=== PATIENT | female | born 1965 | race Caucasian/White ===

== ENCOUNTER 2021-06-10 14:44 | Emergency (ER) | payer BC ==
[2021-06-10 15:05] VITALS: O2SAT 98
[2021-06-10] MEDS ORDERED: Sodium Chloride 0.9% 1000 ML 1,000 ML IV STA (15:25)
[2021-06-10] MEDS ORDERED: Sodium Chloride 0.9% 1000 ML 1,000 ML ONE (15:27)
[2021-06-10] MEDS ORDERED: Zofran 4 MG/2 ML VIAL ONE (15:32)
[2021-06-10] MEDS ORDERED: Hydromorphone 1 mg/ml Injection ONE (15:32)
[2021-06-10] MEDS ORDERED: Zofran 4 MG/2 ML VIAL IV ONE (15:34)
[2021-06-10] MEDS ORDERED: Hydromorphone 1 mg/ml Injection IV ONE (15:34)
--- NOTE | 2021-06-10 15:42 | ERPHSYRPT ---
- History of Present Illness Time Seen by Provider: 06/10/21 15:00 Source: patient Patient Subjective Stated Complaint: rt flank pain for the past 2 weeks, pt had a steroid shot in her left flank on the and started Macrobid on the due to a UTI Triage Nursing Assessment: Pt was brought to the ER by her , ron roman, rates pain 5/10, does not see a kidney specialist, only has one kidney, pain for 2 weeks in right flank, had painful urination last week but denies pain now after being on antibiotic, doesn't appear to be in any distress Physician History: This is a 55-year-old white female who is a patient of Dr. Murphy and presents with right flank pain. She has had intermittent right flank pain for the last 2 weeks. It seemed to be getting better but then yesterday in the evening the pain was getting worse. Patient has a history of only having a right kidney having had a left nephrectomy in the past. She has a history of gastroesophageal reflux disease and chronic urinary tract infections. She was diagnosed with a urinary tract infection on 06/05/2021 and was placed on Macrobid. Patient has no known chronic back issues. She did not suffer any acute trauma or fall injuring her back. She denies chest pain. She denies shortness of breath. She does not have abdominal pain. She has no nausea vomiting or diarrhea. She had been given a steroid injection in the left buttock on 06/05/2021 and it seemed to help her flank pain. Timing/Duration: week(s) (2) Method of Injury: other (No fall) Quality: aching (Right flank), pressure Severity of Pain-Max: moderate Severity of Pain-Current: moderate Modifying Factors: Improves With: movement Associated Symptoms: denies symptoms Previous symptoms: same symptoms as today, recently seen, recently treated Allergies/Adverse Reactions: Sulfa (Sulfonamide Antibiotics) Allergy (Mild, Verified 06/10/21 15:05) states does not take r/t kidney per urologist Home Medications: Nitrofurantoin Macro 100 mg [Macrobid 100MG Capsule] 100 mg PO BID 06/10/21 [History] Omeprazole 20 mg PO DAILY 06/10/21 [History] Hx Tetanus, Diphtheria Vaccination/Date Given: Yes Hx Influenza Vaccination/Date Given: Yes Hx Pneumococcal Vaccination/Date Given: No Travel Risk - International Travel Have you traveled outside of the country in past 3 weeks: No - Coronavirus Screening Are you exhibiting any of the following symptoms?: No Close contact with a COVID-19 positive Pt in past 14-21 Days: No - Vaccine Status Have you recieved a Covid-19 vaccination: No - Review of Systems Constitutional: No Symptoms Eyes: No Symptoms Ears, Nose, & Throat: No Symptoms Respiratory: No Symptoms Cardiac: No Symptoms Genitourinary Symptoms: Flank Pain (Right) Musculoskeletal: Back Pain (Right side), No Injury Skin: No Symptoms Neurological: No Symptoms Psychological: No Symptoms Endocrine: No Symptoms Hematologic/Lymphatic: No Symptoms Immunological/Allergic: No Symptoms All Other Systems: Reviewed and Negative - Past Medical History Pertinent Past Medical History: Yes Neurological History: No Pertinent History ENT History: No Pertinent History Cardiac History: No Pertinent History Respiratory History: No Pertinent History Endocrine Medical History: No Pertinent History Musculoskeletal History: No Pertinent History GI Medical History: Other History: Other Psycho-Social History: No Pertinent History Female Reproductive Disorders: No Pertinent History Other Medical History: frequent UTI,only has one kidney - Past Surgical History Past Surgical History: Yes Neuro Surgical History: No Pertinent History Cardiac: No Pertinent History Respiratory: No Pertinent History Gastrointestinal: No Pertinent History Genitourinary: Kidney Surgery Musculoskeletal: No Pertinent History Female Surgical History: Hysterectomy Other Surgical History: lt kidney removed {at age [age], defect} - Social History Smoking Status: Current every day smoker How long have you smoked: yrs Exposure to second hand smoke: Yes Drug Use: none Patient Lives Alone: No - Female History Hx Now: No - Nursing Vital Signs Nursing Vital Signs: Initial Vital Signs Temperature 97.2 F 06/10/21 14:50 Pulse Rate 78 06/10/21 14:50 Blood Pressure 132/98 06/10/21 14:50 O2 Sat by Pulse Oximetry 98 06/10/21 14:50 Pain Scale Pain Intensity [Right Back] 5 Pain Intensity 5 - Physical Exam General Appearance: no apparent distress, alert, anxiety Eye Exam: PERRL/EOMI, eyes nml inspection Ears, Nose, Throat Exam: normal ENT inspection, moist mucous membranes Neck Exam: normal inspection, non-tender, supple, full range of motion Respiratory Exam: normal breath sounds, lungs clear, airway intact, No chest tenderness, No respiratory distress Cardiovascular Exam: regular rate/rhythm, normal heart sounds, normal peripheral pulses Gastrointestinal Exam: soft, normal bowel sounds, No tenderness Pelvic Exam: not done Rectal Exam: not done Back Exam: normal inspection, normal range of motion, CVA tenderness (Right side), No vertebral tenderness Extremity Exam: normal inspection, normal range of motion, pelvis stable Neurologic Exam: alert, oriented x 3, cooperative, extermination supervisor II-XII nml as tested, normal mood/affect, nml cerebellar function, nml station & gait, sensation nml Skin Exam: normal color, warm, dry Lymphatic Exam: No adenopathy SpO2 Interpretation: normal SpO2: 98 O2 Delivery: Room Air - Course Nursing assessment & vital signs reviewed: Yes Ordered Tests: Active Orders 24 hr Category Date Time Status IV Insertion STAT Care 06/10/21 15:25 Active ABDOMEN AND PELVIS W/0 CONTRAS [CT] Stat Exams 06/10/21 15:25 Taken AMYLASE Stat Lab 06/10/21 15:12 Completed CBC W DIFF Stat Lab 06/10/21 15:12 Completed CMP Stat Lab 06/10/21 15:12 Completed LIPASE Stat Lab 06/10/21 15:12 Completed UA W/RFX UR CULTURE Stat Lab 06/10/21 15:27 Completed Medication Summary Discontinued Medications Generic Name Dose Route Start Last Admin Trade Name Freq PRN Reason Stop Dose Admin Hydromorphone HCl 0.5 mg 06/10/21 15:34 06/10/21 15:35 Hydromorphone 1 Mg/1ml Inj 1 Mg/Ml Syringe IV 06/10/21 15:35 0.5 mg STAT ONE Administration Hydromorphone HCl Confirm 06/10/21 15:32 Hydromorphone 1 Mg/1ml Inj 1 Mg/Ml Syringe Administered 06/10/21 15:33 Dose 1 mg .ROUTE .STK-MED ONE Sodium Chloride 1,000 mls @ 999 mls/hr 06/10/21 15:25 06/10/21 15:29 Sodium Chloride 0.9% 1000 Ml IV 06/10/21 16:25 999 mls/hr .Q1H1M STA Administration Sodium Chloride Confirm 06/10/21 15:27 Sodium Chloride 0.9% 1000 Ml Administered 06/10/21 15:28 Dose 1,000 mls @ ud .ROUTE .STK-MED ONE Ondansetron HCl 4 mg 06/10/21 15:34 06/10/21 15:35 Ondansetron Hcl 4 Mg/2 Ml Vial IV 06/10/21 15:35 4 mg STAT ONE Administration Ondansetron HCl Confirm 06/10/21 15:32 Ondansetron Hcl 4 Mg/2 Ml Vial Administered 06/10/21 15:33 Dose 4 mg .ROUTE .K-[facility] ONE Lab/Rad Data: Laboratory Result Diagrams 06/10/21 15:12 06/10/21 15:12 Laboratory Results 06/10/21 06/10/21 06/10/21 Range/Units 15:27 15:12 15:12 WBC 12.5 H (4.0-10.5) K/mm3 RBC 3.92 L (4.1-5.4) M/mm3 Hgb 11.9 L (12.0-16.0) gm/dl Hct 36.8 (35-47) % MCV 93.9 (78-100) fl MCH 30.4 (26-32) pg MCHC 32.3 (32-36) g/dl RDW 13.2 (11.5-14.0) % Plt Count 467 H (150-450) K/mm3 MPV 9.9 (7.5-11.0) fl Gran % 57.8 (36.0-66.0) % Eos # (Auto) 0.15 (0-0.5) Absolute Lymphs (auto) 4.25 (1.0-4.6) Absolute Monos (auto) 0.84 (0.0-1.3) Lymphocytes % 33.9 (24.0-44.0) % Monocytes % 6.7 (0.0-12.0) % Eosinophils % 1.2 (0.00-5.0) % Basophils % 0.4 (0.0-0.4) % Absolute Granulocytes 7.25 H (1.4-6.9) Basophils # 0.05 (0-0.4) Sodium 139 (137-145) mmol/L Potassium 4.3 (3.5-5.1) mmol/L Chloride 107 (98-107) mmol/L Carbon Dioxide 23 (22-30) mmol/L Anion Gap 12.6 (5-15) MEQ/L BUN 13 (7-17) mg/dL Creatinine 0.71 (0.52-1.04) mg/dL Estimated GFR > 60.0 ML/MIN Glucose 88 (74-106) mg/dL Calcium 9.8 (8.4-10.2) mg/dL Total Bilirubin 0.40 (0.2-1.3) mg/dL AST 37 H (14-36) U/L ALT 18 (0-35) U/L Alkaline Phosphatase 81 (38-126) U/L Serum Total Protein 7.0 (6.3-8.2) g/dL Albumin 4.4 (3.5-5.0) g/dL Amylase 58 (30-110) U/L Lipase 207 (23-300) U/L Urine Color YELLOW (YELLOW) Urine Appearance CLEAR (CLEAR) Urine pH 6.0 (5-6) Ur Specific [place] 1.009 (1.005-1.025) Urine Protein NEGATIVE (Negative) Urine Ketones NEGATIVE (NEGATIVE) Urine Blood NEGATIVE (0-5) Yoan/ul Urine Nitrite NEGATIVE (NEGATIVE) Urine Bilirubin NEGATIVE (NEGATIVE) Urine Urobilinogen NEGATIVE (0-1) mg/dL Ur Leukocyte Esterase NEGATIVE (NEGATIVE) Urine WBC (Auto) NONE (0-5) /HPF Urine RBC (Auto) NONE (0-2) /HPF U Epithel Cells (Auto) NONE (FEW) /HPF Urine Bacteria (Auto) NONE (NEGATIVE) /HPF Urine Culture Reflexed NO (NO) Urine Glucose NEGATIVE (NEGATIVE) mg/dL - Progress Progress: improved, pain not gone completely Progress Note: 06/10/21 16:35 CAT scan of the abdomen pelvis without contrast shows mild right hydronephrosis and right hydroureter but no obstructing calculus. Cannot exclude a recently passed calculus that is no longer present. Counseled pt/family regarding: lab results, diagnosis, need for follow-up, rad results - Departure Departure Disposition: Home Clinical Impression: Right flank pain Condition: Stable Critical Care Time: No Referrals: DOCTOR,NO FAMILY [Primary Care Provider] - Follow up/PCP as directed Additional Instructions: Drink plenty fluids. Continue your antibiotics as prescribed. Follow-up with your primary care physician for further management Prescriptions: Prednisone 10 mg [Deltasone 10 mg] 10 mg PO TID #12 tablet
[2021-06-10 15:43] LABS: Absolute Neutrophil Ct (ANC) 7.25 (1.4-6.9); BASOPHIL % 0.4 % (0.0-0.4); Basophil (Absolute #) 0.05 (0-0.4); Eosinophil % 1.2 % (0.00-5.0); Eosinophil (Absolute #) 0.15 (0-0.5); Hematocrit 36.8 % (35-47); Hemoglobin 11.9 gm/dl (12.0-16.0); Lymphocyte (Absolute #) 4.25 (1.0-4.6); Lymphocytes % 33.9 % (24.0-44.0); Mean Cell Volume 93.9 fl (78-100); Mean Corpuscular Hemoglobin 30.4 pg (26-32); Mean Corpuscular Hgb Concent. 32.3 g/dl (32-36); Mean Platelet Volume 9.9 fl (7.5-11.0); Monocyte (Absolute #) 0.84 (0.0-1.3); Monocytes % 6.7 % (0.0-12.0); Neutrophil % 57.8 % (36.0-66.0); Platelet Count 467 K/mm3 (150-450); Red Blood Count 3.92 M/mm3 (4.1-5.4); Red Cell Distribution Width 13.2 % (11.5-14.0); White Blood Count 12.5 K/mm3 (4.0-10.5)
[2021-06-10 15:48] LABS: Appearance CLEAR (CLEAR); Bilirubin NEGATIVE (NEGATIVE); Blood NEGATIVE Ery/ul (0-5); Glucose NEGATIVE (NEGATIVE); Ketones NEGATIVE (NEGATIVE); Leukocyte Esterase NEGATIVE (NEGATIVE); Nitrite NEGATIVE (NEGATIVE); Protein,Urine Dip NEGATIVE (Negative); Specific Gravity 1.009 (1.005-1.025); Urobilinogen NEGATIVE mg/dL (0-1)
[2021-06-10 15:52] LABS: ALBUMIN 4.4 g/dL (3.5-5.0); ALKALINE PHOSPHATASE 81 U/L (38-126); AMYLASE 58 U/L (30-110); ANION GAP 12.6 MEQ/L (5-15); BLOOD UREA NITROGEN 13 mg/dL (7-17); CHLORIDE 107 mmol/L (98-107); Calcium 9.8 mg/dL (8.4-10.2); Carbon Dioxide 23 mmol/L (22-30); Creatinine 1 0.71 mg/dL (0.52-1.04); EST GLOMERULAR FILTRATION RATE > 60.0 ML/MIN; Glucose 88 mg/dL (74-106); LIPASE 207 U/L (23-300); Potassium 4.3 mmol/L (3.5-5.1); SGOT/AST 37 U/L (14-36); SGPT/ALT 18 U/L (0-35); SODIUM 139 mmol/L (137-145)
[2021-06-10 16:45] VITALS: BP 144/85; PULSE 67
--- NOTE | 2021-06-11 09:02 | XRAY ---
Exam: CT of the abdomen and pelvis without IV contrast from 06/10/2021. CTDI: 8.23 mGy Comparison: CT of the abdomen and pelvis with IV contrast from 06/16/2014. Indication: 55-year-old female with abdominal pain/right flank pain for 2 weeks. Patient has history of prior left nephrectomy and hysterectomy. Technique: Non-IV contrast axial images were obtained through the abdomen and pelvis. No oral contrast was given. Reconstructed coronal and sagittal images were created and reviewed. Findings: The visualized lung bases appear clear. The heart size is normal. The liver and spleen appear of normal size and uniform attenuation. No focal mass is seen within the liver or spleen. No intrahepatic biliary duct distention is seen. The gallbladder is distended and reveals no dense calcifications within it. Both the pancreas and adrenal glands appear unremarkable. The left kidney is surgically absent. The right kidney measures 13.0 cm in length and reveals no gross evidence of mass or calculi. However, I see mild right-sided pelviectasis representing no change. Portions of the right ureter are prominent measuring up to 1.2 cm in diameter. However, this is essentially unchanged from 06/16/2014. Correlate clinically regarding the possibility of a recently passed stone. The urinary bladder is distended and appears unremarkable. No urinary bladder wall thickening or intraluminal calcifications are seen within the urinary bladder. Mild atherosclerotic vascular calcification is seen within the abdominal aorta. There is no evidence of abdominal aortic aneurysm or abnormal retroperitoneal lymphadenopathy. There is no free intraperitoneal air or bowel containing ventral hernia. No abnormal bowel distention or bowel obstruction is seen. No definite bowel wall thickening is seen. I note some scattered diverticula throughout the colon, the greatest number within the sigmoid colon. No evidence of diverticulitis is seen. The appendix is identified within a retrocecal location and appears unremarkable. The uterus again appears surgically absent. No other abnormal pelvic mass or lymphadenopathy is seen. No free intraperitoneal fluid is evident. The pelvic sidewalls appear unremarkable. Some calcified phleboliths are seen within the lower pelvis on each side of midline. Each femoral region appears unremarkable. The skeleton reveals mild narrowing of the L4-L5 interspace height with small vertebral endplate spurs indicating early/mild degenerative disc disease. In addition, there is moderate narrowing of the L5-S1 interspace height with new vacuum disc phenomena as well as some mild vertebral endplate spurring indicating moderate degenerative disc disease. There is a small Schmorl's node within the posterior aspect of the inferior vertebral endplate of T11 representing no change. Mild left L5-S1 facet joint arthropathy is seen. Impression: 1. I again note mild right sided pelvocaliectasis as well as right-sided hydroureter down to the level of the ureterovesical junction representing no significant change from 06/16/2014. An obstructing calcified ureteral stone is not seen. Correlate clinically regarding the possibility of a recently passed right ureteral stone. 2. Colonic diverticulosis without evidence of acute diverticulitis. 3. Normal appendix. 4. Status post left nephrectomy and hysterectomy.
== END 2021-06-10 17:00 | disposition home or self-care (01) ==
LOC: ED 14:44
DX: R10.84 Generalized abdominal pain (principal); Z90.5 Acquired absence of kidney; Z72.0 Tobacco use
CPT/HCPCS: 36415; 74176; 80053; 81001; 82150; 83690; 85025; 96374; 96375; 99284; J1170; J2405

== ENCOUNTER 2023-04-27 18:55 | Emergency (ER) | payer BC, MEDICAID ==
[2023-04-27 19:13] VITALS: O2SAT 99
[2023-04-27] MEDS ORDERED: TORAdol 30 mg Injection IV ONE (19:23)
--- NOTE | 2023-04-27 19:24 | ERPHSYRPT ---
- History of Present Illness Time Seen by Provider: 04/27/23 19:10 Source: patient Exam Limitations: no limitations Patient Subjective Stated Complaint: SHINGLES RASH Triage Nursing Assessment: Patient reports to ER with c/o pain and rash to right side groin spreading to right side and back. Patient states this rash began almost 2 months ago and that it started out as blisters but is now all dried up and scabbed. Patient reports a history of shingles in the past and states this pain resembles shingles pain. Patient rating pain 6/10 at this time and requesting "no controlled drugs". Dried scabbed areas noted from right groin around to back- no drainage noted. Patient denies itching. Patient also reporting poor appetite and intermittent headache. Pt a&o x3, easy respirations on room air. Physician History: Patient is a 57-year-old female presents to our emergency department for treatment of postherpetic neuralgia.Patient had a shingles flareup approximately 2 months ago. The area of involvement isL1 dermatome.The lesions are currently dried and scabbed. However patient is experiencing post herpetic neuralgia. She rates her pain 6 out of 10.Symptoms are moderate in intensity. No specific worsening improving factors. Patient does not have a primary care doctor to follow-up with. Patient states her primary care doctor is no longer active in the area therefore patient has no one to follow-up with for patient.Patient is otherwise healthy. She voices no other complaints or concerns at this time Portions of this note were created with voice recognition technology. There may be grammatical, spelling, punctuation or sound alike errors Timing/Duration: other (2 months) Severity: moderate Modifying Factors: Improves With: nothing Associated Symptoms: denies symptoms Allergies/Adverse Reactions: Sulfa (Sulfonamide Antibiotics) Allergy (Mild, Verified 04/27/23 19:02) states does not take r/t kidney per urologist Home Medications: Cephalexin Mh 250 mg [Keflex 250 mg] 250 mg PO HS 04/27/23 [History] Hx Tetanus, Diphtheria Vaccination/Date Given: Yes Hx Influenza Vaccination/Date Given: Yes Hx Pneumococcal Vaccination/Date Given: No Travel Risk - International Travel Have you traveled outside of the country in past 3 weeks: No - Coronavirus Screening Are you exhibiting any of the following symptoms?: No Close contact with a COVID-19 positive Pt in past 14-21 Days: No - Vaccine Status Have you recieved a Covid-19 vaccination: No - Review of Systems Constitutional: No Symptoms, No Fever, No Chills Eyes: No Symptoms Ears, Nose, & Throat: No Symptoms Respiratory: No Symptoms, No Cough, No Dyspnea Cardiac: No Symptoms, No Chest Pain, No Edema, No Syncope Abdominal/Gastrointestinal: No Symptoms, No Abdominal Pain, No Nausea, No Vomiting, No Diarrhea Genitourinary Symptoms: No Symptoms, No Dysuria Musculoskeletal: No Symptoms, No Back Pain, No Neck Pain Skin: No Symptoms, No Rash Neurological: No Symptoms, No Dizziness, No Focal Weakness, No Sensory Changes Psychological: No Symptoms Endocrine: No Symptoms Hematologic/Lymphatic: No Symptoms Immunological/Allergic: No Symptoms All Other Systems: Reviewed and Negative - Past Medical History Pertinent Past Medical History: Yes Neurological History: No Pertinent History ENT History: No Pertinent History Cardiac History: No Pertinent History Respiratory History: No Pertinent History Endocrine Medical History: No Pertinent History Musculoskeletal History: No Pertinent History GI Medical History: Diverticulosis, Other History: Other Psycho-Social History: No Pertinent History Female Reproductive Disorders: No Pertinent History Other Medical History: frequent UTI,only has one kidney - Past Surgical History Past Surgical History: Yes Neuro Surgical History: No Pertinent History Cardiac: No Pertinent History Respiratory: No Pertinent History Gastrointestinal: No Pertinent History Genitourinary: Kidney Surgery Musculoskeletal: No Pertinent History Female Surgical History: Hysterectomy Other Surgical History: lt kidney removed {at age [age], defect} - Social History Smoking Status: Former smoker How long have you smoked: yrs Exposure to second hand smoke: Yes Drug Use: none Patient Lives Alone: Yes - Nursing Vital Signs Nursing Vital Signs: Initial Vital Signs Pulse Rate 98 H 04/27/23 19:04 Respiratory Rate 17 04/27/23 19:04 Blood Pressure 144/99 04/27/23 19:04 O2 Sat by Pulse Oximetry 99 04/27/23 19:04 Pain Scale Pain Intensity 3 - Physical Exam General Appearance: no apparent distress, alert Eye Exam: PERRL/EOMI, eyes nml inspection Neck Exam: normal inspection, full range of motion Respiratory Exam: airway intact, No respiratory distress Cardiovascular Exam: regular rate/rhythm, normal heart sounds, normal peripheral pulses Gastrointestinal/Abdomen Exam: soft, No tenderness, No mass, No guarding Back Exam: normal inspection, normal range of motion, No CVA tenderness, No vertebral tenderness Extremity Exam: normal inspection, normal range of motion, pelvis stable Neurologic Exam: alert, oriented x 3, cooperative, normal mood/affect, nml cerebellar function, nml station & gait, sensation nml, No motor deficits Skin Exam: normal color, warm, dry, other (There is residual dried scabbed lesions along L1 dermatome. On the right side.No superimposed infection. No open or draining lesions.), No rash Lymphatic Exam: No adenopathy SpO2 Interpretation: normal SpO2: 99 O2 Delivery: Room Air - Course Nursing assessment & vital signs reviewed: Yes Ordered Tests: Medication Summary Discontinued Medications Generic Name Dose Route Start Last Admin Trade Name Fremaryjane PRN Reason Stop Dose Admin Ketorolac Tromethamine 30 mg 04/27/23 19:23 04/27/23 19:49 Ketorolac Tromethamine 30 Mg/Ml Inj IV 04/27/23 19:24 30 mg STAT ONE Administration Ketorolac Tromethamine Confirm 04/27/23 19:48 Ketorolac Tromethamine 30 Mg/Ml Inj Administered 04/27/23 19:49 Dose 30 mg .ROUTE .[employer]-MED ONE - Progress Progress: improved Progress Note: 57-year-old female presents emergency department for evaluation ofPostherpetic neuralgia. Patient symptoms started approximately 2 months ago. Her lesions are now healed dried however there is residual pain.Patient states she did not want a narcotic. Patient given a dose of Toradol. Patient reassessed. Patient that she feels much better and is requesting discharge. A prescription for Toradol forwarded to patient's pharmacy. Patient agrees to follow-up with her primary care doctor within 48 hours for reevaluation Portions of this note were created with voice recognition technology. There may be grammatical, spelling, punctuation or sound alike errors Complexity of problem addressed is moderate acute complicated No critical care time Complexity of data reviewed and analyzed is none. No specialized testing ordered. Diagnosis made based on history and physical examination. Risk of complication and or risk of morbidity/mortality patient management is moderate. A prescription for Toradol forwarded to patient's pharmacy. Vital stable. Time spent to discharge patient is approximately 15 minutes. Plan of care established for shared decision making. No social determinants of health present to impede follow-up Portions of this note were created with voice recognition technology. There may be grammatical, spelling, punctuation or sound alike errors 04/27/23 20:58 Counseled pt/family regarding: diagnosis, need for follow-up - Departure Departure Disposition: Home Clinical Impression: Post herpetic neuralgia Condition: Stable Critical Care Time: No Referrals: STEPH MARIA, [NON-STAFF PHY W/O PRIVILEGES] - Follow up/PCP as directed Additional Instructions: Discharge/Care Plan SOPHIE ELI was seen on 04/27/23 in the Emergency Room. The patient was counseled regarding Diagnosis,Lab results, Imaging studies, need for follow up and when to return to the Emergency Room. Prescriptions given: Discharge Note I have spoken with the patient and/or caregivers. I have explained the patient's condition, diagnosis and treatment plan based on the information available to me at this time. I have answered the patient's and/or caregiver's questions and addressed any concerns. The patient and/or caregivers have as good understanding of the patient's diagnosis, condition and treatment plan as can be expected at this point. The vital signs have been stable. The patient's condition is stable and appropriate for discharge from the emergency department. The patient will pursue further outpatient evaluation with the primary care y sician or other designated or consulting physician as outlined in the discharge instructions. The patient and/or caregivers are agreeable to this plan of care and follow-up instructions have been explained in detail. The patient and/or caregivers have received these instruction. The patient/and or caregivers are aware that any significant change in condition or worsening of symptoms should prompt an immediate return to this or the closest emergency department or call 911. Prescriptions: Ketorolac Trometh 10 mg Tab [TORAdol 10 MG TABLET] 10 mg PO TID 5 Days #15 tablet
[2023-04-27] MEDS ORDERED: TORAdol 30 mg Injection ONE (19:48)
[2023-04-27 20:44] VITALS: BP 117/90; PULSE 60; RESP 18
== END 2023-04-27 21:04 | disposition home or self-care (01) ==
LOC: ED 18:55
DX: B02.29 Other postherpetic nervous system involvement (principal); Z79.899 Other long term (current) drug therapy; Z28.310 Unvaccinated for COVID-19
CPT/HCPCS: 96372; 99282; J1885

== ENCOUNTER 2024-05-03 08:35 | Emergency (ER) | payer MEDICAID ==
[2024-05-03 08:54] VITALS: PULSE 84; RESP 16; TEMP 97.6
--- NOTE | 2024-05-03 09:06 | ERPHSYRPT ---
- History of Present Illness Time Seen by Provider: 05/03/24 08:50 Source: patient Exam Limitations: clinical condition Patient Subjective Stated Complaint: left arm pain Triage Nursing Assessment: patient was walking down stairs, slipped and fell on her right arm this past friday. pain has been increasingly worse. left arm looks to have some swelling. firm to touch Occurred: days ago Method of Injury: fell Quality: constant Severity of Pain-Max: mild Severity of Pain-Current: mild Allergies/Adverse Reactions: Sulfa (Sulfonamide Antibiotics) Allergy (Mild, Verified 05/03/24 08:54) states does not take r/t kidney per urologist Home Medications: Cephalexin Mh 250 mg [Keflex 250 mg] 250 mg PO HS 04/27/23 [History] Duloxetine HCl 30 mg [Cymbalta 30 MG Capsule] 40 mg PO DAILY 05/03/24 [History] Hx Tetanus, Diphtheria Vaccination/Date Given: Yes Hx Influenza Vaccination/Date Given: No Hx Pneumococcal Vaccination/Date Given: No Travel Risk - International Travel Have you traveled outside of the country in past 3 weeks: No - Emerging Infectious Disease Are you exhibiting symptoms associated with any current EIDs: No - Review of Systems Eyes: No Symptoms Ears, Nose, & Throat: No Symptoms Respiratory: No Symptoms Cardiac: No Symptoms Abdominal/Gastrointestinal: No Symptoms Genitourinary Symptoms: No Symptoms Musculoskeletal: No Symptoms Skin: No Symptoms Neurological: No Symptoms Psychological: No Symptoms Endocrine: No Symptoms Hematologic/Lymphatic: No Symptoms Immunological/Allergic: No Symptoms - Past Medical History Pertinent Past Medical History: Yes Neurological History: No Pertinent History ENT History: No Pertinent History Cardiac History: No Pertinent History Respiratory History: No Pertinent History Endocrine Medical History: No Pertinent History Musculoskeletal History: No Pertinent History GI Medical History: Diverticulosis, Other History: Other Psycho-Social History: No Pertinent History Female Reproductive Disorders: No Pertinent History Other Medical History: frequent UTI,only has one kidney - Past Surgical History Past Surgical History: Yes Neuro Surgical History: No Pertinent History Cardiac: No Pertinent History Respiratory: No Pertinent History Gastrointestinal: No Pertinent History Genitourinary: Kidney Surgery Musculoskeletal: No Pertinent History Female Surgical History: Hysterectomy Other Surgical History: lt kidney removed {at age [age], defect} - Social History Smoking Status: Current every day smoker How long have you smoked: yrs Exposure to second hand smoke: Yes Drug Use: none Patient Lives Alone: Yes - Social Determinants of Health In the past 12 months,have you had to go without utilities?: No Transportation Issues: No Has anyone in your support network made you feel unsafe?: No Have you or anyone in your house had to go without enough: No - Nursing Vital Signs Nursing Vital Signs: Initial Vital Signs Temperature 97.6 F 05/03/24 08:45 Pulse Rate 84 05/03/24 08:45 Respiratory Rate 16 05/03/24 08:45 O2 Sat by Pulse Oximetry 99 05/03/24 08:45 Pain Scale Pain Intensity 5 - Physical Exam General Appearance: no apparent distress Eyes, Ears, Nose, Throat Exam: normal ENT inspection Neck Exam: normal inspection Cardiovascular/Respiratory Exam: chest non-tender Abdominal Exam: non-tender Shoulder Exam: bone tenderness (patient has limited ROM due to pain ), limited ROM, soft tissue tenderness SpO2: 99 Ordered Tests: Active Orders 24 hr Category Date Time Status CHEST WITHOUT CONTRAST [CT] Stat Exams 05/03/24 10:17 Completed SHOULDER Stat Exams 05/03/24 09:03 Completed Medication Summary Discontinued Medications Generic Name Dose Route Start Last Admin Trade Name Vane PRN Reason Stop Dose Admin Oxycodone/Acetaminophen 1 tab 05/03/24 09:04 05/03/24 09:19 Oxycodone Hcl/Apap 5 Mg/325 Mg Tablet PO 05/03/24 09:05 1 tab STAT STA Administration Oxycodone/Acetaminophen Confirm 05/03/24 09:18 Oxycodone Hcl/Apap 5 Mg/325 Mg Tablet Administered 05/03/24 09:19 Dose 1 tab .ROUTE .ST-MED ONE - Progress Progress Note: X-ray of the no acute left shoulder reveals no acute findings patient was updated with the results- ct scan of the chest was obtained and this revealed no acute findings she was updated and informed of the need for follow up - she will be discharged home with a sling and informed of the need to use tylenol motrin and an icepak 05/03/24 10:13 05/03/24 13:47 Medical Desision Making - Discussion of managment Reviewed:: Need for additional workup Agreed on:: Treatment plan, need for follow-up - Diagnostic Testing Diagnostic test were ordered, analyzed, and reviewed by me: Yes Radiological Interpretation: Reviewed by me - Departure Clinical Impression: Contusion of left shoulder, Sprain of left shoulder Condition: Stable Critical Care Time: No Referrals: DOCTOR,NO FAMILY [Primary Care Provider] - Follow up/PCP as directed
[2024-05-03] MEDS ORDERED: PERCOCET TABLET 5/325MG ONE (09:18)
[2024-05-03] MEDS: PERCOCET TABLET 5/325MG PO STA (09:19)
[2024-05-03 10:05] VITALS: BP 113/92
--- NOTE | 2024-05-03 10:10 | XRAY ---
Indication: Pain following fall. Comparison: None 3 view left shoulder demonstrates osteopenia and mild AC degenerative arthropathy. No other bony, articular, or soft tissue abnormalities.
[2024-05-03 10:17] VITALS: O2SAT 99
--- NOTE | 2024-05-03 12:56 | XRAY ---
Indication: Left posterior trauma following fall 4 days ago. Multiple contiguous axial images obtained through the chest without contrast. Comparison: None Lungs demonstrate minimal dependent atelectasis. No suspicious pulmonary mass/nodule, infiltrate, effusion, or pneumothorax. Heart not enlarged. Aorta is normal in course and caliber. No pathologic mediastinal lymphadenopathy. Bony thorax intact with minimal degenerative changes throughout upper thoracic spine and minimally elongated dextroscoliosis centered at T7. Limited upper abdomen demonstrates left total nephrectomy. Impression: Chronic findings including left total nephrectomy and chronic bony findings. Remaining CT chest without contrast exam is normal.
== END 2024-05-03 14:12 | disposition home or self-care (01) ==
LOC: ED 08:35
DX: S40.012A Contusion of left shoulder, initial encounter (principal); S43.402A Unspecified sprain of left shoulder joint, initial encounter; W10.9XXA Fall (on) (from) unspecified stairs and steps, initial encounter; Z79.899 Other long term (current) drug therapy; Z72.0 Tobacco use
CPT/HCPCS: 71250; 73030; 99283; A9270-GY

== ENCOUNTER 2024-05-13 16:29 | Emergency (ER) | payer OTHER ==
[2024-05-13 17:10] VITALS: TEMP 98; O2SAT 97
[2024-05-13] MEDS ORDERED: NORCO 10-325 MG ONE (17:20)
[2024-05-13] MEDS: NORCO 10-325 MG PO STA (17:21)
--- NOTE | 2024-05-13 18:02 | ERPHSYRPT ---
- History of Present Illness Time Seen by Provider: 05/13/24 17:01 Source: patient Exam Limitations: no limitations Patient Subjective Stated Complaint: C/O left shoulder pain. Patient indicates she fell almost 2 weeks ago. MRI today shows tendon tears. She is scheduled to see Ortho, Dr. Hdez on 05/17/24. Patient states she is in increased pain since the MRI today due to the way she had to be positioned for the test. Patient looking for pain relief/management until seen by Dr. Hdez on Friday. Triage Nursing Assessment: Patient ambulated back to ER [facility]. She is alert and oriented. S/S os pain present; grimacing. Physician History: Patient here with left shoulder injury. States that she fell 2 weeks ago. Patient finally got an MRI today. This demonstrated a full-thickness tear supraspinatus tendon with tendon retraction. Also a partial tear of the subscapularis tendon. Patient is in a lot of pain. She arrives today to see if there is anything else we can do for her. She has no new falls or trauma. She has only been taking Tylenol. Patient only has 1 kidney therefore she has not been able to take any ibuprofen. No other falls or trauma outside of this. No actual chest pain, shortness of breath, signs or symptoms of ACS. Allergies/Adverse Reactions: Sulfa (Sulfonamide Antibiotics) Allergy (Mild, Verified 05/13/24 16:53) states does not take r/t kidney per urologist Home Medications: Cephalexin Mh 250 mg [Keflex 250 mg] 250 mg PO HS 04/27/23 [History] Duloxetine HCl 30 mg [Cymbalta 30 MG Capsule] 40 mg PO DAILY 05/03/24 [History] Omeprazole 20 mg PO DAILY 05/13/24 [History] Hx Tetanus, Diphtheria Vaccination/Date Given: Yes Hx Influenza Vaccination/Date Given: No Hx Pneumococcal Vaccination/Date Given: No Immunizations Up to Date: Yes Travel Risk - International Travel Have you traveled outside of the country in past 3 weeks: No - Emerging Infectious Disease Are you exhibiting symptoms associated with any current EIDs: No - Past Medical History Pertinent Past Medical History: Yes Neurological History: No Pertinent History ENT History: No Pertinent History Cardiac History: No Pertinent History Respiratory History: No Pertinent History Endocrine Medical History: No Pertinent History Musculoskeletal History: No Pertinent History GI Medical History: Diverticulosis, Other History: Other Psycho-Social History: No Pertinent History Female Reproductive Disorders: No Pertinent History Other Medical History: frequent UTI, only has one kidney, shingles, neuropathy pain from shingles - Past Surgical History Past Surgical History: Yes Neuro Surgical History: No Pertinent History Cardiac: No Pertinent History Respiratory: No Pertinent History Gastrointestinal: No Pertinent History Genitourinary: Kidney Surgery Musculoskeletal: No Pertinent History Female Surgical History: Hysterectomy Other Surgical History: lt kidney removed {at age [age], defect} - Social History Smoking Status: Current every day smoker How long have you smoked: 25 years Exposure to second hand smoke: Yes Drug Use: none Patient Lives Alone: Yes - Social Determinants of Health Will the patient participate in the screening: Yes Do you worry about a steady place to live?: No Do you have any problems with any of the following?: No known problems In the past 12 months,have you had to go without utilities?: No Transportation Issues: No Has anyone in your support network made you feel unsafe?: No Have you or anyone in your house had to go without enough: No - Nursing Vital Signs Nursing Vital Signs: Initial Vital Signs Temperature 98 F 05/13/24 16:55 Pulse Rate 84 05/13/24 16:55 Respiratory Rate 20 05/13/24 16:55 Blood Pressure 133/100 05/13/24 16:55 O2 Sat by Pulse Oximetry 97 05/13/24 16:55 Pain Scale Pain Intensity 3 - Physical Exam SpO2: 97 Comments: 05/13/24 18:04 Review of Systems Constitutional: Negative for fever. HENT: Negative for congestion. Respiratory: Negative for shortness of breath. Cardiovascular: Negative for chest pain. Gastrointestinal: Negative for abdominal pain. Genitourinary: Negative for dysuria. Musculoskeletal: Negative for back pain. Skin: Negative for rash. Neurological: Negative for headaches. Psychiatric/Behavioral: Negative for behavioral problems. All other systems reviewed and are negative. Physical Exam Vitals signs and nursing note reviewed. Constitutional: Appearance: Patient is well-developed. HENT: Head: Normocephalic and atraumatic. Eyes: Conjunctiva/sclera: Conjunctivae normal. Neck: Musculoskeletal: Normal range of motion. Trachea: No tracheal deviation. Cardiovascular: Rate and Rhythm: Normal rate. Pulmonary: Effort: Pulmonary effort is normal. No respiratory distress. Abdominal: Palpations: Abdomen is soft. Musculoskeletal: General: Posterior shoulder pain over supraspinatus tendon. No obvious deformity, sensation intact, 2+ capillary refill, 2 point tactile discrimination intact. Limited range of motion and strength secondary to injury. Compartments are soft, nontender. Overlying skin shows no tenting, bruising, ecchymosis. Skin: General: Skin is warm and dry. Neurological/ Psychiatric: Mental Status: Mental status, behavior, interaction with environment is appropriate for patient's age and condition - Course Nursing assessment & vital signs reviewed: Yes Ordered Tests: Active Orders 24 hr Category Date Time Status Consult Ortho ROUTINE Cons 05/13/24 17:54 Completed Medication Summary Discontinued Medications Generic Name Dose Route Start Last Admin Trade Name Vane PRN Reason Stop Dose Admin Hydrocodone Bitart/Acetaminophen 1 tablet 05/13/24 17:13 05/13/24 17:21 Hydrocodone/Acetamin 10-325 Mg Tablet PO 05/13/24 17:14 1 tablet ONCE STA Administration Hydrocodone Bitart/Acetaminophen Confirm 05/13/24 17:20 Hydrocodone/Acetamin 10-325 Mg Tablet Administered 05/13/24 17:21 Dose 1 tablet .ROUTE .STK-MED ONE Hydrocodone Bitart/Acetaminophen 2 tab 05/13/24 18:00 Hydrocodone/Apap 5/325 1 Tab Tablet PO 05/13/24 18:01 SENT HOME W/ PATIENT ONE - Progress Progress: improved Progress Note: 05/13/24 18:05 No new or different injuries today. We did give 1 oral [place] here. This helped patient's pain. We did have nurse coordinate with orthopedic surgery. Patient will be seen tomorrow instead of next week. Patient will be given [place] to go home with. Return here sooner for any new or changing symptoms. 05/13/24 18:06 Counseled pt/family regarding: diagnosis, need for follow-up - Departure Departure Disposition: Home Clinical Impression: Injury of left shoulder Condition: Stable Critical Care Time: No Referrals: ASIA LION NP [Primary Care Provider] - Follow up/PCP as directed Instructions: Shoulder Sprain (DC) Additional Instructions: see ortho tomorrow
[2024-05-13] MEDS ORDERED: NORCO 5/325 MG ONE (18:11)
[2024-05-13] MEDS: NORCO 5/325 MG PO ONE (18:12)
[2024-05-13 18:23] VITALS: BP 119/97; PULSE 80; RESP 17
== END 2024-05-13 18:24 | disposition home or self-care (01) ==
LOC: ED 16:29
DX: S46.812A Strain of other muscles, fascia and tendons at shoulder and upper arm level, left arm, initial encounter (principal); W19.XXXA Unspecified fall, initial encounter
CPT/HCPCS: 99282; A9270-GY

== ENCOUNTER 2024-06-11 05:53 | Day surgery (SDC) | payer OTHER ==
[2024-06-11] MEDS: celeBREX 100 MG PO ONE (06:13)
[2024-06-11] MEDS: NEURONTIN PO ONE (06:13)
[2024-06-11] MEDS: TYLENOL EXTRA STRENGTH 500 MG PO ONE (06:13)
[2024-06-11] MEDS: Decadron 4 MG PO ONE (06:13)
[2024-06-11] MEDS: CEFAZOLIN 2 GM/100 ML NaCl 2 GM/100 ML IVPB IV SCH (06:14)
[2024-06-11] MEDS: Lactated Ringers 1,000 ML IV SCH (06:14)
[2024-06-11] MEDS ORDERED: MARCAINE 0.25% PF/ EPI 1:200,000 ONE (06:28)
[2024-06-11] MEDS ORDERED: Kenalog-40 ONE (06:28)
[2024-06-11] MEDS ORDERED: Marcaine Mpf 0.5% Vial 30 Ml ONE ×2 (06:28→07:33)
[2024-06-11] MEDS ORDERED: Epinephrine Preservative Free 1 MG/ML ONE ×3 (06:28→09:00)
[2024-06-11] MEDS ORDERED: DIPRIVAN 200 MG/20 ML IV ONE (07:29)
[2024-06-11] MEDS ORDERED: ROCURONIUM BROMIDE IV ONE (07:29)
[2024-06-11] MEDS ORDERED: TORAdol 30 mg Injection ONE (07:29)
[2024-06-11] MEDS ORDERED: BRIDION 200MG/2ML IV ONE (07:29)
[2024-06-11] MEDS ORDERED: SUBLIMAZE 100 MCG/2 ML ONE (07:29)
[2024-06-11] MEDS ORDERED: Zofran 4 MG/2 ML VIAL ONE (07:29)
[2024-06-11] MEDS ORDERED: Xylocaine-Mpf 2% 5 Ml Vial ONE (07:29)
[2024-06-11] MEDS ORDERED: EXPAREL 133 MG/10 ML VIAL IJ ONE (07:33)
[2024-06-11] MEDS ORDERED: DILAUDID 2 MG INJECTION ONE (09:07)
[2024-06-11 11:13] VITALS: RESP 18; TEMP 97.4; O2SAT 92
[2024-06-11] MEDS: Transderm Scop 1.5MG Patch TOP ONE (11:14)
[2024-06-11] MEDS: Zofran 4 MG/2 ML VIAL IV STA (11:14)
[2024-06-11 11:16] VITALS: BP 143/89; PULSE 80
--- NOTE | 2024-06-15 14:17 | OP ---
SURGERY DATE/TIME: 06/11/2024 [id number] PREOPERATIVE DIAGNOSIS: Left rotator cuff tear. PROCEDURE: Left arthroscopic rotator cuff repair. SURGEON: Luis Poon MD PASTER HAT LINING: Madelin Wilkerson ANESTHESIA: General plus interscalene block. ESTIMATED BLOOD LOSS: Zero. FLUIDS: Per the anesthesia record. SPECIMEN: None. DRAINS: None. COMPLICATIONS: None. INDICATIONS: The patient is a 58-year-old white female with painful, weak right shoulder after a traumatic fall with a rotator cuff tear. She wished to have this repaired for pain relief and lutheran of function. FINDINGS: A 3 cm U-shaped tear of the supraspinatus insertion with about 2 cm retraction. DESCRIPTION OF PROCEDURE AND FINDINGS: Patient was seen in the holding room, identified the left shoulder as correct. This was initialed by me. She had 2 g of Kefzol IV preoperatively, had interscalene block then general anesthesia. She was sat in a beach chair position with a wide strap, keeping pressure off her superior nerves, had her right arm on a padded stand, had her heels and calves protected with pillows and foam, had a kidney rest on the left side, had sterile prepping and draping of the left upper extremity. Time-out was performed by me. The arm was held in position with the Arthrex Trimano. The portals were marked out. An 18-gauge spinal needle was entered from position of 1 cm inferior and medial to the posterolateral corner of the acromion aiming toward the coracoid. This was injected with irrigating fluid which was normal saline with 1 mL of 1:100,000 epinephrine per 3 L bag, injecting 30 mL. The portals were each injected with 2 mL of 0.25% Marcaine with epinephrine. The posterior portal was made 5 cm longitudinal vertically and then a trocar was used to introduce the scope. A 30-degree scope was used, the pump pressure set at 50 mmHg. The rotator interval was identified anteriorly and the needle was placed from the position of 1 cm superior and lateral to the coracoid aiming toward the joint. This was seen to enter inferior to the biceps tendon. This was then enlarged with an 11-blade and then a switching stick was placed and an 8 mm Arthrex disposable cannula was placed. The joint was inspected. There were findings of labral partial tearing anteriorly which was debrided. There was some inflamed synovium which was debrided with multiheaded bipolar which was combined with a 4 mm shaver. The rotator cuff tear was identified from the undersurface. Glenohumeral surfaces were normal appearing. The labrum inferiorly was normal. Subacromial space was then entered and the cannula anteriorly replaced into the subacromial space. Subacromial debridement was done with the multiheaded bipolar and the shaver. Then, an Arthrex Top-Hat type cannula was placed laterally. The articular margin was identified and then a spinal needle was entered just lateral to the acromion anteriorly at the junction of the cartilage and greater tuberosity. This was then enlarged to about 4 mm with a knife and then a cannula for the Arthrex 2.6 mm FiberTak was placed down that margin and then the self-tapping FiberTak was impacted then pulled back to the suture set. The same thing was then done with additional portal placed posterior to this. These were then passed through the rotator cuff using the Scorpion through the lateral portal. One of the sutures was pulled out anteriorly. The suture tails were cut off of each and then 1 suture from each anchor was grasped and pulled out the lateral cannula. This was then threaded through a 4.75 mm SwiveLock which was then placed along the greater tuberosity and impacted slightly with self-tapping device. The sutures were then tensioned to the rotator cuff which was approximated back to the greater tuberosity and then the screw was set flush with the bone to hold the sutures in place. The sutures were then cut off. The same thing was done with the anterior anchor placing it about 8 mm more anterior to the previous anchor. The bone was soft but anchors felt like they would hold. The rotator cuff was inspected and seemed to have good repair. The shuttle sutures were removed from the SwiveLock anchors and the additional repair suture was cut off flush with the anchors. All fluid was allowed to extravasate out the cannulas then the portals were closed with 4-0 Monocryl subcuticular sutures, Steri-Strips and Mastisol. Sterile dressings applied, and the patient was placed in a Donjoy-type sling which held her abducted about 15 degrees. PLAN: Patient to do pendulum exercises, passively to 90. She will be seen back in 1 week for wound check. She may remove the dressing and shower postop day 3. She already had a prescription for Percocet called in earlier this week which she may have filled today. Patient will start physical therapy 6 weeks postop.
== END 2024-06-11 12:05 | disposition home or self-care (01) ==
LOC: SDC 05:53
PROVIDERS: ATTEND Orthopaedic Surgery
DX: M75.102 Unspecified rotator cuff tear or rupture of left shoulder, not specified as traumatic (principal)
CPT/HCPCS: 29827; 76937; C1776; J0171; J0690; J1171; J1885; J2405; J2704; J3010; J3301; A9270-GY

== ENCOUNTER 2025-01-31 05:50 | Day surgery (SDC) | payer OTHER ==
[2025-01-31] MEDS ORDERED: CEFAZOLIN SODIUM ONE (06:02)
[2025-01-31] MEDS: Lactated Ringers 1,000 ML IV SCH (06:15)
[2025-01-31] MEDS: celeBREX 100 MG PO ONE (06:16)
[2025-01-31] MEDS: TYLENOL EXTRA STRENGTH 500 MG PO ONE (06:16)
[2025-01-31] MEDS: Decadron 4 MG PO ONE (06:16)
[2025-01-31] MEDS: Transderm Scop 1.5MG Patch TOP PRN (06:16)
[2025-01-31] MEDS: NEURONTIN PO ONE (06:16)
[2025-01-31 06:33] VITALS: RESP 16
[2025-01-31 06:36] LABS: Hematocrit 37.7 % (34.1-44.9); Hemoglobin 12.9 g/dL (11.2-15.7); Mean Corpuscular Hemoglobin 31.6 pg (25.6-32.2); Mean Corpuscular Hgb Concent. 34.2 g/dL (32.2-35.5); Platelet Count 389 x10^3/uL (182-369); Red Blood Count 4.08 x10^6/uL (3.93-5.22); White Blood Count 9.1 x10^3/uL (3.98-10.04)
--- NOTE | 2025-01-31 06:37 | XRAY ---
CLINICAL HISTORY: pre OP COMPARISON: 09/09/2016. TECHNIQUE: X-ray images of the chest were obtained in posteroanterior (PA) and lateral projections. FINDINGS: Pulmonary Parenchyma: Lungs are clear bilaterally. No evidence of consolidation, collapse, or focal opacities. No pulmonary nodules identified. No evidence of pleural effusion or pleural thickening. Heart and Mediastinum: Heart size and shape are normal. No mediastinal widening or masses. No hilar or mediastinal lymphadenopathy. Bony Thorax: Thoracic spine degenerative changes. Bony thorax appears intact without fractures or deformities. Soft Tissues: Soft tissues overlying the chest wall are unremarkable. IMPRESSION: 1. No acute cardiopulmonary abnormalities identified. 2. No significant interval changes. Electronically Signed by: Ruddy Leon MD. (01/31/2025 06:35:05 EDT)
[2025-01-31 06:47] LABS: Calcium 9.7 mg/dL (8.4-10.2); Carbon Dioxide 22.0 mmol/L (22-30); Creatinine 1 0.79 mg/dL (0.52-1.04); EST GLOMERULAR FILTRATION RATE 85.1 ML/MIN; Glucose 106.0 mg/dL (74-106); Potassium 4.1 mmol/L (3.5-5.1); SGOT/AST 35.0 U/L (14-36); SGPT/ALT 21.0 U/L (0-35); Total Protein 7.3 g/dL (6.3-8.2)
[2025-01-31] MEDS ORDERED: ROCURONIUM BROMIDE IV ONE (07:10)
[2025-01-31] MEDS ORDERED: SUBLIMAZE 100 MCG/2 ML ONE (07:10)
[2025-01-31] MEDS ORDERED: propofoL IV ONE (07:10)
[2025-01-31] MEDS ORDERED: Versed 2 MG/2 ML Injection ONE (07:10)
[2025-01-31] MEDS ORDERED: Marcaine 0.5%/Epinephrine 10 ML ONE (07:12)
[2025-01-31] MEDS ORDERED: Epinephrine Preservative Free 1 MG/ML ONE (07:24)
[2025-01-31] MEDS ORDERED: Xylocaine-Mpf 2% 5 Ml Vial ONE ×2 (08:14→08:45)
[2025-01-31] MEDS ORDERED: Zofran 4 MG/2 ML VIAL ONE (08:57)
[2025-01-31] MEDS ORDERED: BRIDION 200MG/2ML IV ONE (08:59)
[2025-01-31 10:08] VITALS: O2SAT 93
[2025-01-31 10:20] VITALS: BP 116/67; PULSE 79; TEMP 96.6
--- NOTE | 2025-02-01 11:56 | OP ---
SURGERY DATE/TIME: 01/31/2025 [id number] PREOPERATIVE DIAGNOSES: Biceps tendinopathy, possible recurrent tear, rotator cuff. POSTOPERATIVE DIAGNOSES: Biceps tendinopathy, adhesions and chondromalacia of humeral head, left shoulder. PROCEDURES: Arthroscopy of the left shoulder with a biceps tenotomy, lysis of adhesions, and chondroplasty of the humeral head. SURGEON: Que Hdez II, ANESTHESIA: General with a block for postop pain control. DESCRIPTION OF PROCEDURE AND FINDINGS: The patient was identified and informed consent was obtained. The patient was taken to the operative suite where she had the block administered and was given the general anesthetic. Following this, she was placed into the right lateral decubitus position with the left side up. Shoulders were rotated back 20 degrees. The axillary roll was placed. Bony prominences padded and the beanbag was then inflated. The left upper extremity and shoulder were then prepped and draped in the usual sterile fashion. A standard time-out was taken. The arm was then placed into the STaR abduction traction device with 40 degrees of lateral opening, about 20 degrees of forward flexion and 10 pounds of longitudinal traction. At this point, the shoulder was marked for bony landmarks. A standard posterior portal was created with an 11 blade. The trocar and cannula were placed in the joint, and the joint was distended with the arthroscopic pump. An 18-gauge spinal needle identified the level through the anterior portal, which was also created with an 11 blade. The scope was placed into the bursal space where the bursal side of the rotator cuff was probed and inspected and noted to have complete healing on the bursal side. Sutures from the patient's previous repair were noted. There was no evidence of recurrent tearing on the bursal side. There was no evidence of scuffing of the undersurface of the acromion to indicate any type of impingement. Scope was then placed into the glenohumeral joint again. The rotator cuff was inspected on the articular side. Again, the rotator cuff was noted to have healed. You could see the edges of some of the suture; however, the cuff was intact and had healed very nicely. Patient did have a number of adhesions around the glenohumeral joint, which were debrided with the shaver as well as the arthroscopic wand. Patient did have some grade 3 chondromalacia of the humeral head, which was debrided and contoured with the wand. The labrum was noted to be intact anteriorly, superiorly, and posteriorly. Patient did have significant tendinopathy of the biceps tendon, and a biceps tenotomy was accomplished with the wand as well as the shaver. Glenohumeral ligaments were noted to be intact. The infraglenoid pouch had no loose bodies, and there was no significant evidence of adhesive capsulitis. At this point, the shoulder was then reinspected and copiously irrigated. The instrumentation was removed, and the portal sites were closed with interrupted 4-0 nylon suture. Adaptics, 4 x 4's and a sterile dressing applied. The patient was placed into a sling for comfort, transferred to the cart, and taken to the recovery room in satisfactory condition, having tolerated the procedure well.
== END 2025-01-31 10:42 | disposition home or self-care (01) ==
LOC: SDC 05:50
PROVIDERS: ATTEND Orthopaedic Surgery
DX: M75.22 Bicipital tendinitis, left shoulder (principal); M94.212 Chondromalacia, left shoulder; M75.02 Adhesive capsulitis of left shoulder